=== PATIENT | male | born 1970 | race Caucasian/White ===

== ENCOUNTER 2022-04-01 12:08 | Day surgery (SDC) | payer MEDICAID ==
[~2022-04-01] VITALS: Ht 167.6 cm; Wt 136.1 kg
[~2022-04-01 12:08] MED LIST: SODIUM CHLORIDE 0.9% 1,000 ML ONE
[2022-04-01] MEDS ORDERED: PROPOFOL 1% 20 ML VIAL IVP ONE (12:09)
[2022-04-01 12:26] LABS: COVID AG,FIA SOURCE NASOPHARYNGEAL
[2022-04-01] MEDS ORDERED: METR500 PO (12:27)
[2022-04-01] MEDS ORDERED: BISM-171 PO (12:30)
[2022-04-01] MEDS ORDERED: HYDR25TA84 PO (12:30)
[2022-04-01] MEDS ORDERED: SODIUM CHLORIDE 0.9% 1,000 ML IV ONE (12:30)
[2022-04-01] MEDS ORDERED: LISI30TA4 PO (12:30)
[2022-04-01] MEDS ORDERED: DOXY75CA5 PO (12:30)
[2022-04-01 12:55] LABS: GLUCOMETER DEV NAME(LOC) SDS.; GLUCOSE,POINT OF CARE 99 MG/DL (70-110)
== END 2022-04-01 15:35 | disposition home or self-care (01) ==
LOC: SURGERY 12:08
PROVIDERS: ATTEND Internal Medicine Gastroenterology
DX: K59.00 Constipation, unspecified (principal); K64.8 Other hemorrhoids; I10 Essential (primary) hypertension; E11.9 Type 2 diabetes mellitus without complications; Z20.822 Contact with and (suspected) exposure to COVID-19; Z79.899 Other long term (current) drug therapy; Z98.890 Other specified postprocedural states
CPT/HCPCS: 45378; 87426; 82962; C9803; J2704; J7030